=== PATIENT | male | born 1960 | race Two or more races ===

== ENCOUNTER 2020-08-15 16:56 | Emergency (ER) | payer OTHER ==
[~2020-08-15] VITALS: Ht 170.2 cm; Wt 68.0 kg
[2020-08-15] MEDS ORDERED: TETRACAINE HCL 0.5% OPTH(EYE) SOLN 4ML RIGHTEYE ONE (18:30)
[2020-08-15] MEDS ORDERED: FLUORESCEIN SOD 1 MG TEST STRIP RIGHTEYE ONE (18:30)
[2020-08-15 18:36] VITALS: BP 124/78
== END 2020-08-15 19:22 | disposition home or self-care (01) ==
LOC: ER 16:56
DX: T15.91XA Foreign body on external eye, part unspecified, right eye, initial encounter (principal); K21.9 Gastro-esophageal reflux disease without esophagitis; X58.XXXA Exposure to other specified factors, initial encounter; Y93.89 Activity, other specified; Y92.89 Other specified places as the place of occurrence of the external cause; Y99.8 Other external cause status